=== PATIENT | male | born 1955 | race Caucasian/White ===

== ENCOUNTER → 2020-08-26 09:46 | Outpatient (CLI) | payer OTHER, SELFPAY ==
--- NOTE | ~2020-08-26 | CT_ITS ---
EXAMINATION: CT brain wo con DATE: 08/26/2020 10:07 INDICATION: Headache. TECHNIQUE: Computed tomography (CT) of the head was performed without intravenous contrast. The mA wa s adjusted according to patient size. Iterative reconstruction technique was employed. The dose-lengt h product was 599.57 mGy-cm. COMPARISON: None FINDINGS: There is no intracranial hemorrhage, acute infarction, or abnormal intracranial mass lesion . There are scattered areas of low attenuation in the cerebral white matter, which is within normal l imits for the patient's age. The ventricles are normal in size. The mastoid air cells are normal. The re is mucosal thickening in the paranasal sinuses. The orbits are normal. IMPRESSION: 1. Normal aging brain. Reviewed, dictated and finalized at location A. IMPRESSION: 1. Normal aging brain.
== END ==
PROVIDERS: Visit Provider Nurse Practitioner
DX: R51.9 Headache, unspecified (principal)
CPT/HCPCS: 70450

== ENCOUNTER → 2021-09-19 14:04 | Outpatient (CLI) | payer OTHER, MEDICARE, SELFPAY ==
--- NOTE | ~2021-09-19 | XR_ITS ---
EXAM: XR lumbar spine 2-3V HISTORY: M54.32 - Sciatica, left side COMPARISON: None available FINDINGS: 5 nonrib-bearing lumbar-type vertebral bodies with intact pedicles. Lumbar scoliosis. Mult ilevel disc space narrowing, marginal osteophytosis, and vacuum disc phenomenon. The most severe page ges are present at L3-4 and L5-S1. Abdominal aortic calcifications without aneurysm. Lower lumbar fac et arthropathy. Cholelithiasis. Nephrolithiasis versus vascular calcification over the left kidney. IMPRESSION: Multilevel degenerative disc disease, most severe at L3-4 and L5-S1. Reviewed, dictated and finalized at location K.
== END ==
PROVIDERS: PCP Family Medicine; Visit Provider Family Medicine
DX: M54.32 Sciatica, left side (principal); M51.36 Other intervertebral disc degeneration, lumbar region; M51.37 Other intervertebral disc degeneration, lumbosacral region
CPT/HCPCS: 72100

== ENCOUNTER → 2023-01-02 10:36 | Outpatient (CLI) | payer MEDICARE, OTHER, SELFPAY ==
--- NOTE | ~2023-01-02 | XR_ITS ---
Left Knee Technique: AP, lateral, oblique, and sunrise views were obtained. Clinical History: Injury Findings: No fracture or dislocation is seen. Osseous alignment is anatomic. Joint spaces are preserv ed without degenerative or erosive change. Soft tissues are unremarkable. No joint effusion is seen. Impression: Unremarkable left knee radiographs. Reviewed, dictated and finalized at location . Impression: Unremarkable left knee radiographs.
== END ==
PROVIDERS: PCP Family Medicine; Visit Provider Nurse Practitioner Family
DX: S89.92XA Unspecified injury of left lower leg, initial encounter (principal); X58.XXXA Exposure to other specified factors, initial encounter
CPT/HCPCS: 73564

== ENCOUNTER → 2023-03-22 07:14 | Outpatient (CLI) | payer MEDICARE, OTHER, SELFPAY ==
--- NOTE | ~2023-03-22 | MR_ITS ---
MRI of the left knee Clinical history: Pain Technique: Coronal proton density and proton density-weighted images, sagittal proton-density and T2 fat-sat images, and axial proton-density fat-saturated images were acquired. Findings: Anterior and posterior cruciate ligaments are intact. Medial collateral ligament and the la teral collateral ligament complex are intact. Popliteus tendon is intact. There is probable bucket-handle tear of the medial meniscus, with associated horizontal tear in the p osterior horn. No lateral meniscal tear seen. There is grade I chondromalacia patella. Remaining articular cartilage is well preserved. Bone marrow signals are unremarkable. Extensor mechanism is intact. Small joint effusion is present. No Andrade's cyst. Impression: Probable buckle handle tear of the medial meniscus with horizontal tear of the posterior horn. Small joint effusion. Grade I chondromalacia patella. Reviewed, dictated and finalized at [facility]. Impression: Probable buckle handle tear of the medial meniscus with horizontal tear of the posterior horn. Small joint effusion. Grade I chondromalacia patella.
== END ==
PROVIDERS: PCP Nurse Practitioner Family; Visit Provider Nurse Practitioner Family
DX: M25.562 Pain in left knee (principal); M25.462 Effusion, left knee
CPT/HCPCS: 73721

== ENCOUNTER 2023-05-17 01:41 | Day surgery (SDC) | payer MEDICARE, OTHER, SELFPAY ==
[2023-03-28 13:29] VITALS: BMI 22.4
--- NOTE | 2023-03-28 13:30 | PC.NURSE ---
Addendum entered by Anabel Coto RN 03/28/23 15:04: LEFT PT VOICEMAIL TO HOLD MULTIVITAMINS X3 DAYS PREOP, AND TO CHECK WITH DR. ORTEGA'S OFFICE REGARDING WHETHER IBUPROFEN NEEDS TO BE STOPPED PREOP. Original Note: Report to the Outpatient Waiting Room, entrance under the green pavilion located off [facility], at time _0600_ on date _[id number]_. Planned Procedure Time: _0730_. Time changes happen often and if your time is changed the preop area will call you the afternoon before. - You and your visitor will be asked to self-screen and do not enter if you have any COVID symptoms. - A mask is optional within the hospital at this time. Patients may have clear liquids (water, carbonated beverages, clear teas, apple juice) until 3 hours prior to surgery with a maximum of 20 ounces. - No food from midnight until time of surgery Take the following medications with a SIP of water the morning of surgery: ____None DO NOT STOP ANY OF YOUR OTHER PRESCRIPTION MEDICATIONS PRIOR TO SURGERY ?EXCEPT THE FOLLOWING Medications to discontinue per physician None Date to take last dose Please no make-up, nail frisian, hairspray, perfume, deodorant, or body powder the day of surgery. No jewelry (including any body piercings) or valuables the day of surgery, leave them at home. Please take a shower or bath the night before, or the morning of, surgery with an antibacterial soap. Wear comfortable, loose fitting clothing. - Jewelry must be removed prior to entering the operating room. Rings and piercings that are not removed may be cut off. - The hospital will not accept responsibility for valuables. - Please leave all valuables, including medications, at home the day of surgery. If you are going home after surgery, a licensed seasonal driver must drive you home. - NO public transportation without another adult if you receive anesthesia. - We recommend that an adult stay with you for 24 hours following discharge. - We also recommend that you do not drive, make important decision, drink alcoholic beverages, or take any drugs that were not prescribed by your health care provider for at least 24 hours after your discharge time. Follow any additional instructions given to you from your surgeon. If you or anyone in your household have experienced Covid symptoms in the past week, please notify your surgeon or the nurse liaison at the phone number below for possible testing. Telephone instructions given to __Paul___and asked if any additional questions and then verbalized understanding. Patient advised to call surgeon office or pre surgery nurse liaison [phone] if any additional questions.
--- NOTE | 2023-05-10 11:47 | PC.NURSE ---
Report to the Outpatient Waiting Room, entrance under the green pavilion located off [facility], at time __0830 on date _05/17/23 . Planned Procedure Time: _1030 . Time changes happen often and if your time is changed the preop area will call you the afternoon before. - You and your visitor will be asked to self-screen and do not enter if you have any COVID symptoms. - A mask is optional within the hospital at this time. Patients may have clear liquids (water, carbonated beverages, clear teas, apple juice) until 3 hours prior to surgery with a maximum of 20 ounces. - No food from midnight until time of surgery - Infants may have breast milk until 4 hours before surgery, infant formula 6 hours prior to surgery. - Children will be allowed to drink immediately following surgery. If applicable, please bring a bottle or sippy cup to assist with drinking. Juice, water, soda, and popsicles are readily available. For infants on formula, please bring formula the day of surgery. Pacifiers are allowed. Take the following medications with a SIP of water the morning of surgery: ___NONE DO NOT STOP ANY OF YOUR OTHER PRESCRIPTION MEDICATIONS PRIOR TO SURGERY ?EXCEPT THE FOLLOWING Medications to discontinue per physician ___ALL VITAMINS AND SUPPLEMENTS 3 DAYS PRE OP.LAST DOSE 05/13/[address] ORTEGA___ Please no make-up, nail slovenian, hairspray, perfume, deodorant, or body powder the day of surgery. No jewelry (including any body piercings) or valuables the day of surgery, leave them at home. Please take a shower or bath the night before, or the morning of, surgery with an antibacterial soap. Wear comfortable, loose fitting clothing. Children are encouraged to wear pajamas. - Jewelry must be removed prior to entering the operating room. Rings and piercings that are not removed may be cut off. - The hospital will not accept responsibility for valuables. - Please leave all valuables, including medications, at home the day of surgery. If you are going home after surgery, a licensed cdl truck driver must drive you home. - NO public transportation without another adult if you receive anesthesia. - We recommend that an adult stay with you for 24 hours following discharge. - We also recommend that you do not drive, make important decision, drink alcoholic beverages, or take any drugs that were not prescribed by your health care provider for at least 24 hours after your discharge time. For Pediatric surgeries, we recommend two adults accompany the child home. Follow any additional instructions given to you from your surgeon. If you or anyone in your household have experienced Covid symptoms in the past week, please notify your surgeon or the nurse liaison at the phone number below for possible testing. Telephone instructions given to ___PATIENT and asked if any additional questions and then verbalized understanding. Patient advised to call surgeon office or pre surgery nurse liaison [phone] if any additional questions.
[2023-05-10 11:49] VITALS: BMI 22.4
[2023-05-17] VITALS (9 sets, daily range): BP systolic 124–145; BP diastolic 60–79; PULSE 71–96; RESP 12–20; TEMP 36.1–36.6; O2SAT 94–99
--- NOTE | 2023-05-17 07:08 | WPDHPUPDATE1 ---
History and Physical Update Update Date/Time: 05/17/23 07:08 History and Physical has been reviewed, including an updated exam of the patient. There are NO changes in the patient's condition. Risks, benefits, and alternatives have been discussed and questions answered. Patient agrees to proceed with procedure.
--- NOTE | 2023-05-17 09:10 | WPDANESEPPF ---
Anes - Initial Pre Proc Eval Procedure: Operation Date: 05/17/23 10:30 Proposed Procedures p Left Knee Arthroscopy - Km Torres MD Date/Time: 05/17/23 09:10 Surgeon: Km Torres MD Pre Op Diagnosis: Left Knee Medial Meniscus Tear Patient Data Age: 67 Gender: M Height: 1.83 m Weight: 76 kg Last Vital Signs Temp 36.6 C 05/17/23 08:53 Pulse 81 05/17/23 08:53 Resp 18 05/17/23 08:53 BP 142/77 H 05/17/23 08:53 Pulse Ox 97 05/17/23 08:53 O2 Del Method Room Air 05/17/23 08:53 Allergies Allergy/AdvReac Type Severity Reaction Status Date / Time erythromycin base Allergy Unknown Unknown Verified 05/17/23 08:58 Home Medications Medication Instructions Recorded Confirmed Type fluticasone propionate 50 1 spray intranasal DAILY 10/27/19 05/10/23 History mcg/actuation nasal spray,suspension (Flonase Allergy Relief) [id number] 300 mcg-K 60 1 tablet PO DAILY 08/05/20 05/10/23 History mcg-lycop 600 mcg-lutein 300 mcg tablet (Centrum Silver Men) loratadine 10 mg tablet (Claritin) 10 mg PO DAILY 08/04/21 05/10/23 History sodium chloride 0.65 % nasal spray 1 spray intranasal BID PRN Allergy 08/04/21 05/10/23 History aerosol (Saline Nasal) Symptoms acetaminophen 500 mg tablet 500 mg PO Q6H PRN Pain 01/02/23 05/10/23 History (Tylenol Extra Strength) ibuprofen 200 mg tablet (Advil) 200 mg PO Q6H PRN Pain 01/02/23 05/10/23 History tamsulosin 0.4 mg capsule (Flomax) 0.4 mg PO QHS #90 caps 03/28/23 05/10/23 Rx chlorhexidine gluconate 4 % 1 applic topical DAILY #237 mL 03/29/23 05/10/23 Rx topical liquid (Hibiclens) hydrocodone 5 mg-acetaminophen 325 1 tablet PO Q12H PRN pain #20 tabs 05/17/23 Rx mg tablet Patient hx anesthesia problems: none Family hx anesthesia problems: none Results Review: All pre-operative results and documents have been reviewed as part of the pre-operative evaluation. [facility] Past Medical History Medical History Chronic knee pain Chronic low back pain Combined hyperlipidemia Degenerative disc disease History of kidney stones Internal derangement of knee Left sided sciatica Medial meniscus tear Osteoarthritis Prediabetes Seasonal allergies Surgical History Surgical History No history of previous surgery Family History Family History Father Kidney stones Afib Mother Brain tumor Grandparent Cerebrovascular accident Social History Social History Smoking packs per day: 1 Smoking cigarettes per day: 20.0 Years smoked: 10 Smoking pack-years: 10.00 Smoking status: Former smoker Tobacco type: cigarettes Smoking end date: 03/28/79 Alcohol intake: current Drinks per week: 7 Substance use: never Substance use type: does not use Lack of Transportation: No Lack of Food: Never True Current Housing: I Have Housing Concerned About Future Housing: No Difficulty Paying Gas/Electric Bills: No Difficulty Paying for Meds: No Currently Unemployed: No Education: High School Diploma/GED Difficulty w/ Childcare or Family Care: No Living arrangements: with family 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 Gender identity (if verbalized by the patient): Male Sexual Orientation (if Verbalized by the Patient): Straight or Heterosexual Spiritual care concerns: No Agree to blood products: Yes Anes - Eval Final PreProcedure Day of Procedure 05/17/23 09:10 Patient weight: normal Heart: regular rate and rhythm Lungs: clear to auscultation Airway: Mallampati scale class II Neurological: alert and oriented Last oral intake: >/= 8 hours ASA classification: II Emergent: no Anesthetic plan: proceed Anesthesia type and monit
[2023-05-17] MEDS: ACETAMINOPHEN 500 MG TABLET 1000 MG PO (09:12)
[2023-05-17] MEDS: LACTATED RINGERS 1,000 ML 30 ML IV CONT ×2 (09:12→10:57)
[2023-05-17] MEDS: CELECOXIB 200 MG CAPSULE PO (09:13)
[2023-05-17] MEDS: ceFAZolin 2 GM/D5W 50 ML 2 GM/50 ML BAG IVPB (09:28)
[2023-05-17] MEDS: BUPivacaine HCL 0.5% PF 30 ML VIAL INFILTRATE (09:51)
--- NOTE | 2023-05-17 11:01 | W.PM.PROC2 ---
Procedure Note - Detailed Date of Procedure 05/17/23 Pre-op Diagnosis Left Knee Medial Meniscus Tear Post-op Diagnosis Same Procedure Performed LEFT KNEE SCOPE Surgeon Km Torres MD Anesthesia General Description of Procedure PATIENT WAS TAKEN TO THE OR. LEFT LEG WAS PREPPED AND DRAPED STERILE. TROCARS WERE PLACED IN THE USUAL FASHION. CAMERA WAS INTRODUCED. THERE WAS CHONDROMALACIA TO THE PATELLA FEMORAL JOINT. THERE WAS A LOT OF SYNOVITIS IN ALL COMPARTMENTS. THE MEDIAL COMPARTMENT SHOWED CHONDROMALACIA TO THE MEDIAL FEMORAL CONDYLE. A SHAVER WAS USED TO PREFORM A CHONDROPLASTY. THERE WAS A LARGE COMPLEX BUCKET HANDLE MEDIAL MENISCUS TEAR. THE TEAR WAS REPAIRABLE AND WAS RESECTED WITH A BITER AND A SHAVER DOWN TO A SMOOTH BASE. ABOUT 60% OF THE MENISCUS WAS REMOVED. THE ACL WAS INTACT. THE LATERAL MENISCUS WAS NOT TORN. THE LAT COMPARTMENT HAD MINIMAL CHONDROMALACIA. CHONDROPLASTY WAS PREFORMED. A SYNOVECTOMY WAS PREFORMED WELL. THE PATELLO FEMORAL JOINT UNDERWENT CHONDROPLASTY. THERE WAS GRADE 2 CHONDROMALACIA IN PART OF THE PATELLA. SYNOVECTOMY WAS PREFORMED IN THE SUPERIOR MEDIAL COMPARTMENT. THE WOUNDS WERE APPROXIMATED WITH 4.0 NYLON. STERILE DRESSING WAS APPLIED. PATIENT WAS EXTUBATED. Estimated Blood Loss 5 Complications No immediate complications Condition Stable Disposition PACU
[2023-05-17] MEDS: fentaNYL CITRATE INJ (*CRX) 100 MCG/2 ML VIAL 25 MCG IV PUSH ×4 (11:09→11:18)
[2023-05-17] MEDS: oxyCODONE HCL (*CRX) 5 MG TAB IR PO (12:25)
== END 2023-05-17 13:14 | disposition home or self-care (01) ==
PROVIDERS: PCP Family Medicine; Visit Provider Orthopaedic Surgery
PROC: (CPT 29870; principal; 2023-05-17 10:30)
DX: M23.332 Other meniscus derangements, other medial meniscus, left knee (principal); M65.862 Other synovitis and tenosynovitis, left lower leg; M22.42 Chondromalacia patellae, left knee; E78.2 Mixed hyperlipidemia; G89.29 Other chronic pain; Z79.891 Long term (current) use of opiate analgesic; Z87.891 Personal history of nicotine dependence
CPT/HCPCS: 29881; 29876; A9270; J0690; J1100; J2250; J2405; J2704; J3010; J7120

== ENCOUNTER 2024-10-26 08:07 | Outpatient (NON) | payer MEDICARE, SELFPAY | END 2024-10-26 08:08 | disposition home or self-care (01) | PROVIDERS: PCP Family Medicine; Visit Provider Internal Medicine Gastroenterology | DX: Z12.11 Encounter for screening for malignant neoplasm of colon (principal); K64.4 Residual hemorrhoidal skin tags | CPT/HCPCS: 88305 ==

== ENCOUNTER 2024-10-26 09:50 | Day surgery (SDC) | payer MEDICARE, SELFPAY ==
[2024-07-09 11:20] VITALS: BMI 23.1
--- NOTE | 2024-10-26 07:01 | WPDANESEPPF ---
Anes - Initial Pre Proc Eval Procedure: Operation Date: 10/26/24 12:30 Proposed Procedures p Screening Colonoscopy - Gibson Mora MD Date/Time: 10/26/24 07:01 Surgeon: Gibson Mora MD Pre Op Diagnosis: Neoplasm Screening Patient Data Age: 69 Gender: M Height: 1.83 m Weight: 76.4 kg Allergies Allergy/AdvReac Type Severity Reaction Status Date / Time erythromycin base AdvReac Unknown Vomiting Verified 10/26/24 11:08 Home Medications Medication Instructions Recorded Confirmed Type fluticasone propionate 50 1 spray intranasal DAILY 10/27/19 10/26/24 History mcg/actuation nasal spray,suspension (Flonase Allergy Relief) [id number] 300 mcg-K 60 1 tablet PO DAILY 08/05/20 10/26/24 History mcg-lycop 600 mcg-lutein 300 mcg tablet (Centrum Silver Men) loratadine 10 mg tablet (Claritin) 10 mg PO DAILY 08/04/21 10/26/24 History sodium chloride 0.65 % nasal spray 1 spray intranasal BID PRN Allergy 08/04/21 10/26/24 History aerosol (Saline Nasal) Symptoms acetaminophen 500 mg tablet 500 mg PO Q6H PRN Pain 01/02/23 10/26/24 History (Tylenol Extra Strength) ibuprofen 200 mg tablet (Advil) 200 mg PO Q6H PRN Pain 01/02/23 10/26/24 History hydrocortisone 2.5 % topical cream 1 applic RECTAL DAILY PRN 04/02/24 10/26/24 Rx with perineal applicator hemorrhoids #30 grams (Anusol-HC) tramadol 50 mg tablet 50 mg PO Q8H PRN pain #30 tabs 05/18/24 10/26/24 Rx Patient hx anesthesia problems: none Family hx anesthesia problems: none Results Review: All pre-operative results and documents have been reviewed as part of the pre-operative evaluation. [facility] Past Medical History Medical History External hemorrhoids Prediabetes Osteoarthritis Chronic low back pain Medial meniscus tear Chronic knee pain Degenerative disc disease Left sided sciatica Combined hyperlipidemia History of kidney stones Seasonal allergies Surgical History Surgical History History of medial meniscus repair of left knee (~05/2023) Family History Family History Father Kidney stones Afib Mother Brain tumor Grandparent Cerebrovascular accident Social History Social History Smoking packs per day: 1 Smoking cigarettes per day: 20.0 Years smoked: 10 Smoking pack-years: 10.00 Smoking status: Former smoker Tobacco type: cigarettes Smoking end date: 03/28/79 Additional smoking assessment comments: quit in the 80s Alcohol intake: current Drinks per week: 7 Alcohol use details: 1 beer per day Substance use: never Substance use type: does not use Lack of Transportation: No Lack of Food: Never True Current Housing: I Have Housing Concerned About Future Housing: No Difficulty Paying Gas/Electric Bills: No Difficulty Paying for Meds: No Currently Unemployed: No Education: High School Diploma/GED Difficulty w/ Childcare or Family Care: No Living arrangements: with family 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 Gender identity (if verbalized by the patient): Male Sexual Orientation (if Verbalized by the Patient): Straight or Heterosexual Spiritual care concerns: No Agree to blood products: Yes Anes - Eval Final PreProcedure Day of Procedure 10/26/24 07:01 Patient weight: normal Heart: regular rate and rhythm Lungs: clear to auscultation and normal air movement Airway: Mallampati scale class II Neurological: alert and oriented Last oral intake: >/= 8 hours ASA classification: III Emergent: no Anesthetic plan: proceed Anesthesia type and monitoring: general GIVS and standard monitoring Results Review: All pre-operative results and documents have been reviewed as part of the pre-operative evaluation. Informed Consent: The patient's anesthetic plan and its attendant risks and benefits were discussed with the patient/family/POA. Questions were solicited and answers provided to the satisfaction of the patient/family/POA.
[2024-10-26 11:22] VITALS: BP 147/97; PULSE 108; RESP 20; TEMP 36.9; O2SAT 97; BMI 21.9
[2024-10-26] MEDS: LACTATED RINGERS 1,000 ML 150 ML IV CONT (11:48)
--- NOTE | 2024-10-26 11:49 | SUR.PREOP ---
PT VERY NERVOUS. DR DUDLEY NOTIFIED. PT'S AT BEDSIDE
--- NOTE | 2024-10-26 12:08 | PM.IMHP ---
H&P: HPI History of Present Illness Date/Time: 10/26/24 12:08 Chief Complaint: Screening colonoscopy Narrative: This is the patient's 2nd colonoscopy. There are no GI symptoms and there is no family history of colorectal cancer. Review of Systems Review of Systems: All systems reviewed & are unremarkable except as noted in HPI and below PMFSH Past Medical History Medical History External hemorrhoids Prediabetes Osteoarthritis Chronic low back pain Medial meniscus tear Chronic knee pain Degenerative disc disease Left sided sciatica Combined hyperlipidemia History of kidney stones Seasonal allergies Surgical History Surgical History History of medial meniscus repair of left knee (~05/2023) Family History Family History Father Kidney stones Afib Mother Brain tumor Grandparent Cerebrovascular accident Social History Social History Smoking packs per day: 1 Smoking cigarettes per day: 20.0 Years smoked: 10 Smoking pack-years: 10.00 Smoking status: Former smoker Tobacco type: cigarettes Smoking end date: 03/28/79 Additional smoking assessment comments: quit in the 80 Alcohol intake: current Drinks per week: 7 Alcohol use details: 1 beer per day Substance use: never Substance use type: does not use Lack of Transportation: No Lack of Food: Never True Current Housing: I Have Housing Concerned About Future Housing: No Difficulty Paying Gas/Electric Bills: No Difficulty Paying for Meds: No Currently Unemployed: No Education: High School Diploma/GED Difficulty w/ Childcare or Family Care: No Living arrangements: with family 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 Gender identity (if verbalized by the patient): Male Sexual Orientation (if Verbalized by the Patient): Straight or Heterosexual Spiritual care concerns: No Agree to blood products: Yes Meds Home Medications and Allergies Home Medications Medication Instructions Recorded Confirmed Type fluticasone propionate 50 1 spray intranasal DAILY 10/27/19 10/26/24 History mcg/actuation nasal spray,suspension (Flonase Allergy Relief) [id number] 300 mcg-K 60 1 tablet PO DAILY 08/05/20 10/26/24 History mcg-lycop 600 mcg-lutein 300 mcg tablet (Centrum Silver Men) loratadine 10 mg tablet (Claritin) 10 mg PO DAILY 08/04/21 10/26/24 History sodium chloride 0.65 % nasal spray 1 spray intranasal BID PRN Allergy 08/04/21 10/26/24 History aerosol (Saline Nasal) Symptoms acetaminophen 500 mg tablet 500 mg PO Q6H PRN Pain 01/02/23 10/26/24 History (Tylenol Extra Strength) ibuprofen 200 mg tablet (Advil) 200 mg PO Q6H PRN Pain 01/02/23 10/26/24 History hydrocortisone 2.5 % topical cream 1 applic RECTAL DAILY PRN 04/02/24 10/26/24 Rx with perineal applicator hemorrhoids #30 grams (Anusol-HC) tramadol 50 mg tablet 50 mg PO Q8H PRN pain #30 tabs 05/18/24 10/26/24 Rx Allergies Allergy/AdvReac Type Severity Reaction Status Date / Time erythromycin base AdvReac Unknown Vomiting Verified 10/26/24 11:08 Vital Signs Vital Signs - 24 hr 10/26/24 11:22 Temperature 98.4 F Pulse Rate 108 H Respiratory Rate 20 Blood Pressure 147/97 H Pulse Oximetry 97 Oxygen Delivery Room Air Exam Const: General: cooperative and healthy appearing Resp: Effort & Inspection: normal respiratory effort and able to speak in complete sentences Auscultation: clear to auscultation bilaterally Cardio: Rate: regular rate Rhythm: regular rhythm GI: Inspection: normal to inspection GI Palp: No No hepatosplenomegaly present Auscultation: normal bowel sounds Rectal Exam: deferred Skin: General skin exam: normal color Psych: Appearance: grossly normal Mental Status: mental status grossly normal Assessment and Plan Assessment and plan (1) Encounter for screening colonoscopy: Code(s): Z12.11 - Encounter for screening for malignant neoplasm of colon Status: Acute Assessment and Plan: The patient is deemed a good candidate for the procedure. Consent signed. Will proceed.
[2024-10-26] MEDS: SIMETHICONE ORAL SUSPENSION 20 MG/0.3 ML 30 ML BOTTLE 0.6 ML IRRIGATION (12:25)
[2024-10-26 12:40] VITALS: BP 128/84; PULSE 89; RESP 18; O2SAT 96
[2024-10-26 12:50] VITALS: BP 123/73; PULSE 72; RESP 18; O2SAT 97
[2024-10-26 13:00] VITALS: BP 126/88; PULSE 74; RESP 20; O2SAT 97
--- NOTE | 2024-10-26 13:19 | WPDANESPN ---
Anes - Prog Note Post-Op Date/Time: 10/26/24 13:19 Cardiovascular status: normal Respiratory status: normal Airway patency: baseline Mental status: baseline Post-Op hydration status: normal Vital Signs: Last Vital Signs Temp 36.9 C 10/26/24 11:22 Pulse 74 10/26/24 13:00 Resp 20 10/26/24 13:00 BP 126/88 10/26/24 13:00 Pulse Ox 97 10/26/24 13:00 O2 Del Method Room Air 10/26/24 13:00 Pain Score (VAS): 0 I/O: Intake & Output 10/25/24 10/26/24 10/26/24 23:59 07:59 15:59 Intake Total 600 Balance 600 Post-procedural complaints: none Patient Feedback: Patient satisfied with anesthetic care. Other Findings: Patient vital signs back to baseline. Patient denies nausea and vomiting. Patient's pain under control. Patient OK for discharge.
== END 2024-10-26 13:14 | disposition home or self-care (01) ==
PROVIDERS: PCP Family Medicine; Visit Provider Internal Medicine Gastroenterology
PROC: 0DJD8ZZ Inspection of Lower Intestinal Tract, Via Natural or Artificial Opening Endoscopic (ICD-10-PCS; CPT 45378; principal; 2024-10-26 12:30)
DX: Z12.11 Encounter for screening for malignant neoplasm of colon (principal); D12.2 Benign neoplasm of ascending colon; K57.30 Diverticulosis of large intestine without perforation or abscess without bleeding; K64.8 Other hemorrhoids
CPT/HCPCS: 45385

== ENCOUNTER 2025-02-22 09:08 | Outpatient (CLI) | payer MEDICARE, SELFPAY ==
--- NOTE | ~2025-02-22 | XR_ITS ---
EXAM/ PROCEDURE: XR shoulder RT min 2V - 02/22/2025 9:15 CDT HISTORY: 69 years old Male with Cervicalgia COMPARISON: None available TECHNIQUE: Four view(s) FINDINGS/ IMPRESSION: There are no fractures or dislocations.Joint space narrowing, subchondral sclerosis, subchondral cyst formation and osteophyte formation, compatible with mild osteoarthritis. Reviewed, dictated and finalized at location N.
--- NOTE | ~2025-02-22 | XR_ITS ---
XR cervical spine min 6V INDICATION: Cervicalgia. TECHNIQUE: 7 views of the cervical spine. FINDINGS: Cervical vertebral body heights are within normal limits. No compression fracture in the cervical spine. Predental space is within normal limits. No prevertebral soft tissue swelling. Grade 1 retrolisthesis of C4 on C5. No change with extension. Slight interval improvement with flexion. Moderate joint space narrowing at the C4-C5, C5-C6 and C6-C7 levels with small anterior spurs. Mild to moderate degenerative change scattered throughout the cervical spine IMPRESSION: 1. No compression fracture in the cervical spine. There is reversal of the normal cervical lordosis. 2.Moderate joint space narrowing at the C4-C5, C5-C6 and C6-C7 levels with small anterior spurs. If symptoms persist or worsen, consider a CT or MRI of the cervical spine for further assessment Reviewed, dictated and finalized at location Q. IMPRESSION: 1. No compression fracture in the cervical spine. There is reversal of the norm al cervical lordosis. 2.Moderate joint space narrowing at the C4-C5, C5-C6 and C6-C7 levels with smal l anterior spurs. If symptoms persist or worsen, consider a CT or MRI of the cervical spine for f urther assessment
== END 2025-02-22 09:09 | disposition home or self-care (01) ==
PROVIDERS: PCP Family Medicine; Visit Provider Nurse Practitioner Family
DX: M54.2 Cervicalgia (principal); M25.511 Pain in right shoulder
CPT/HCPCS: 72052; 73030

== ENCOUNTER 2025-05-21 13:15 | Outpatient (RCR) | payer MEDICARE, SELFPAY ==
--- NOTE | 2025-04-21 14:41 | OPREHPOC ---
Outpatient Therapy Plan of Care This is a Multidisciplinary Plan of Care that may contain components documented by all disciplines (PT, OT, and ST.) PT Problem 1 PT Problem #1 Knowledge Deficit PT Goal 1 Goal / Goal Update Patient will demonstrate independence with HEP within 2 weeks of initial evaluation to facilitate adherence to PT POC and pt participation in symptom improvement. PT Problem 2 PT Problem #2 Pain PT Goal 1 Goal / Goal Update Patient will report decreased R shoulder pain to: 1. 1 or less / 10 at rest, in 6 weeks. 2. 2 or less with instances of pain provocation while working during the day, in 10 weeks. PT Problem 3 PT Problem #3 Impaired Sensation PT Goal 1 Goal / Goal Update Patient will report decreased instances of tingling into R hand, digits 4 and 5, to: 1. 3 or fewer times/day, in 6 weeks. 3. 1 or fewer times/day, in 10 weeks.
--- NOTE | 2025-04-21 14:43 | PTOPEVAL1 ---
Assessment and note entered by Tosin Ray PT Evaluation Information Assessment Status Evaluation ICD-10 Condition Codes (PT) Pain in right shoulder M25.511 Other ICD-10 Condition Codes ( M54.12 (cerv. radic); m51.369 (other disc degen); PT) G89.29 (chronic pain) Subjective Information Pt reports pain R shoulder pain with radiation toward elbow and N/T into 5th digit most of the time, sometimes also into 4th digit. This began 4 months ago when working in his attic, reaching far ahead while lying prone to fasten a board. Has had multiple rounds of steroids, which help with the pain, but tingling persists. Reports difficulty reaching behind his back into IR w/ RUE . Primarily sleeps on his left side w/ several pillows to support him. Sleeping on his back is a challenge 2/2 snoring. Has persistent back pain, uses an inversion table which helps manage this. Works is HVAC/construction related. Has been doing ulnar nerve glides found online w/ mixed results. Reported Pain Level Pain Score 2: Self Report Assessment PT Clinical Summary Patient presents to physical therapy with primary complaint of paresthesia in ulnar distribution of RUE and accompanying R shoulder pain. Assessment finds postural contributions via rounded shoulders and forward head, along with decreased scapular motor control, impacting the function of ulnar nerve in RUE. Notably, gentle distraction of cervical vertebrae decreases pt's symptoms indicating a component of cervical radiculopathy. Patient is a good candidate for skilled physical therapy to improve shoulder ROM, scapular motor control, and posture for decreased ulnar nerve symptoms. Moderators to care include chronic back pain and manual nature of pt's career. Plan of Care Interventions Manual Therapy,Mechanical Traction,Neuro Re- education,Patient/Caregiver Education,Therapeutic Activities,Therapeutic Exercise PT Services Indicated Yes Treatment Frequency and 2x/week for 6 weeks Duration These treatments will address the objective and functional deficits as defined above. The patient will be advanced safely and appropriately in order for the patient to progress towards his/her prior level of function. Additional exercises will be introduced and as well as a comprehensive home exercise program upon discharge, if needed, ?to ensure carryover of functional gains achieved in the clinic. This treatment plan has been reviewed and agreement upon by the patient.
--- NOTE | 2025-05-21 16:57 | PTOPDC ---
Assessment and note entered by Tosin Ray PT Evaluation Information Assessment Status Discharge ICD-10 Condition Codes (PT) Pain in right shoulder M25.511 Other ICD-10 Condition Codes ( M54.12 (cerv. radic); m51.369 (other disc degen); PT) G89.29 (chronic pain) Subjective Information Patient reports that shoulder pain seems improved, attributes much of this to the injection he received. Numbness into his R hand, primarily the 5th digit, persists almost always, with intermittent onset of tingling to go with this. States that PT exercises tend to make the paresthesias worse. Reported Pain Level Pain Score 0: Self Report Assessment PT Clinical Summary Patient has seen good improvement in cervical and RUE ROM over the course of therapy. He has been compliant with HEP and put forth good effort during PT sessions. Resistance testing to R shoulder was non-provocative today, which is remarkable because it could not be tested at pt's initial appointment 2/2 pain. Despite this progress, patient's numbness and tingling into his R hand persists. PT exercises have tended to aggravate this nerve symptom. Pt has been advised to follow up with physician for a cervical MRI, which is appropriate at this time given his lack of progress with therapy. Pt agrees with this assessment and discharges from PT following today' s session. Plan of Care PT Services Indicated No
== END 2025-05-25 07:43 | disposition home or self-care (01) ==
LOC: ANHGOSHPT 13:15
PROVIDERS: PCP Family Medicine; Visit Provider Family Medicine
DX: M54.12 Radiculopathy, cervical region (principal); M25.511 Pain in right shoulder; M25.512 Pain in left shoulder; M51.369 Other intervertebral disc degeneration, lumbar region without mention of lumbar back pain or lower extremity pain; M54.50 Low back pain, unspecified; G89.29 Other chronic pain
CPT/HCPCS: 97110; 97112; 97140; 97161; 97530